=== PATIENT | male | born 1980 | race Caucasian/White ===

== ENCOUNTER 2020-06-09 21:14 | Observation (INO) ==
[2020-06-09 22:01] LABS: Basophils # 0.1 K/mcL (0.0-0.2); Basophils % 0.8 %; Eosinophils # 0.2 K/mcL (0.0-0.6); Eosinophils % 1.6 %; Hematocrit 37.3 % (37.5-50.1); Hemoglobin 12.5 g/dL (12.9-16.9); Immature Granulocytes % 0.5 % (0-4); Lymphocytes # 3.2 K/mcL (0.6-4.6); Lymphocytes % 27.2 %; Mean Corpuscular HGB Conc 33.5 g/dL (31.6-35.5); Mean Corpuscular Hemoglobin 28.6 pg (28.0-33.3); Mean Corpuscular Volume 85.4 fL (83.0-100.0); Mean Platelet Volume 10.7 fL (9.4-12.4); Monocytes # 1.4 K/mcL (0.0-1.3); Monocytes % 11.9 %; Neutrophils # 6.9 K/mcL (1.6-8.9); Platelet Count 277 K/mcL (140-400); Red Blood Count 4.37 M/mcL (4.19-5.50); Red Cell Distribution Width 13.7 % (11.5-14.5); White Blood Count 11.8 K/mcL (4.3-11.1)
[2020-06-09 22:09] LABS: Estimated Average Glucose 105 mg/dl; Hemoglobin A1C 5.3 %
[2020-06-09] MEDS ORDERED: *HR* LORazepam 2 MG/ML VIAL IM ONE (22:09)
[2020-06-09 22:23] LABS: Acetaminophen < 10 mcg/mL (10-20); BUN/Creatinine Ratio 27 (6-26); Blood Urea Nitrogen 19 mg/dL (6-20); Calcium 9.4 mg/dL (8.6-10.3); Carbon Dioxide 27 mEq/L (23-29); Chloride 106 mEq/L (98-107); Chol/HDL Ratio 2.2 (0-4.9); Cholesterol 102 mg/dL (< 200); Creatine Kinase 445 Units/L (30-223); Ethanol < 10 mg/dL (Less than 10); Glucose 113 mg/dL (70-105); HDL Cholesterol 47 mg/dL (40-59); LDL Cholesterol,Calculated 45 mg/dL (< 100); Osmolality,Calculated 289 (280-300); Potassium 3.7 mEq/L (3.5-5.1); Salicylate < 2.5 mg/dL (15.0-30.0); Sodium 138 mEq/L (136-145); Triglycerides 50 mg/dL (< 150); eGFR For African Americans > 60 (> 60); eGFR For Non-African Americans > 60 (> 60)
[2020-06-09 22:23] LABS: Bacteria,Urine Few per hpf (None-Few); Bilirubin,Urine Negative (Negative); Blood,Urine Small (Negative); Clarity,Urine Clear (Clear); Color,Urine Yellow (Yellow); Glucose,Urine (UA) Normal (Normal); Ketones,Urine 10 mg/dL (Negative); Leukocyte Esterase,Urine Negative (Negative); Mucus,Urine Few per lpf (None-Few); Nitrite,Urine Negative (Negative); PH,Urine 5.5 pH Units (5.0-8.0); Protein,Urine 30 mg/dL (Neg-Trace); Specific Gravity,Urine > 1.030 (1.010-1.025); Sperm,Urine Present per hpf (None Seen); Squamous Epithelial Cell,Urine Few per hpf (None-Few); Urobilinogen,Urine Normal (Normal)
[2020-06-09 22:29] LABS: Amphetamine Screen,Urine Positive ng/mL (Cutoff=1000); Barbiturate Screen,Urine Negative ng/mL (Cutoff=200); Benzodiazepines Screen,Urine Positive ng/mL (Cutoff=200); Cannabinoid Screen,Urine Positive ng/mL (Cutoff = 50); Cocaine Screen,Urine Positive ng/mL (Cutoff= 300); Opiate Screen,Urine Negative ng/mL (Cutoff=300); Phencyclidine Screen,Urine Negative ng/mL (Cutoff=25)
[2020-06-09] MEDS ORDERED: Haloperidol Lactate 5 MG/ML VIAL IM ONE (22:40)
[2020-06-09] MEDS ORDERED: Ziprasidone 20 MG in Water for inj. (sterile) 1 ML IM ONE (22:41)
[2020-06-09] MEDS ORDERED: Isovue-370 500 ML BOTTLE IVP ONE (22:43)
[2020-06-10] MEDS ORDERED: Naloxone 0.4 MG/ML INJ IVP PRN ×2 (03:53→05:56)
[2020-06-10] MEDS ORDERED: *HR* LORazepam 2 MG/ML VIAL IVP PRN ×3 (05:13→14:31)
[2020-06-10] MEDS: *HR* Heparin 5,000 UNIT/ML VIAL SQ SCH ×2 (05:55→15:31)
[2020-06-10] MEDS ORDERED: Ondansetron 4 MG/2 ML VIAL IVP PRN (05:56)
[2020-06-10] MEDS ORDERED: Acetaminophen 325 MG TABLET PO PRN (05:56)
[2020-06-10] MEDS: 0.9 % Sodium Chloride 1,000 ML IVC SCH ×2 (06:13→10:57)
[2020-06-10] MEDS ORDERED: *HR* LORazepam 2 MG/ML VIAL IM PRN ×2 (10:58)
[2020-06-10] MEDS ORDERED: Nicotine 21 MG PATCH.TD24 TD SCH (11:00)
[2020-06-10 11:36] VITALS: BP 139/90
[2020-06-10] MEDS ORDERED: Thiamine (B-1) 100 MG, Folic Acid 1 MG, MVI, adult with vitamin K 10 ML in 0.9 % Sodi... IVPB SCH (18:00)
== END 2020-06-10 16:47 | disposition home or self-care (01) ==
LOC: EMEROOARM 21:14 → CDU 21:14 → SUATTDRO 06-10 03:29 → 2NENU 06-10 03:38
PROVIDERS: ADMIT Student in an Organized Health Care Education/Training Program; ATTEND Family Medicine